=== PATIENT | female | born 1960 | race Caucasian/White ===

== ENCOUNTER 2025-07-01 09:41 | Outpatient (OUT) | payer MEDICARE, SELFPAY ==
--- OUTSIDE RECORDS SUMMARY | 2025-06-26 14:40 | XMS_ITS | Encounter Summary ---
Author Organization [facility] Address [address] [place] [address] Care Team Providers Care Street Sweeper Operator Name Role Phone Ace Macias DO Primary Care Provider [phone] Ace Macias DO Unavailable [phone] Cee Currie MD Unavailable [phone] Encounter Details Date Type Department Care Team (Late st Contact Info) Description 06/26/2025 2:40 PM EDT Office Visit [facility] [address] [facility] [address] [place] [address] Ace Macias DO [address] [facility] [address] [place] [address] Essential hypertension (Primary Dx); Malignant melanoma of skin of left upper arm (HCC); Chronic fatigue; Anemia, unspecified type; Tachycardia; Low vitamin D level; Malignant melanoma of left upper limb, including shoulder (HCC) Social History Tobacco Use Types Packs/Day Years Used Date Smoking Tobacco: Former Cigarettes Q uit: 03/07/1999 Smokeless Tobacco: Never Comments:Quit 23 yrs ago Alcohol Use Standard Drinks/Week Comments Not Currently 0 (1 standard drink = 0.6 oz pure alcohol) caffeine 1-2 cups per day; coffee B1300 Health Literacy Answer Date Recor ded How often do you need to hav e someone help you when you read instructions, pamphlets, or other written material from your doctor or pharmacy? Never 06/25/2025 Humiliation, Afraid, Rape, and Kick questionnair e Answer Date Recorded Within the last year, have y ou been afraid of your partner or ex-partner? No 06/25/2025 Within the last year, have y ou been humiliated or emotionally abused in other ways by your partner or ex-partner? No Within the last year, have y ou been kicked, hit, slapped, or otherwise physically hurt by your partner or ex-partner? No 06/25/2025 Within the last year, have y ou been raped or forced to have any kind of sexual activity by your partner or ex-partner? No 06/25/2025 Social Connection and Isolation Panel [NHANES] A nswer Date Recorded In a typical week, how many times do you talk on the phone with family, friends, or neighbors? Once a week 06/25/2025 How often do you get together with friends or re latives? Once a week 06/25/2025 How often do you attend hindu or adventist serv ices? Never 06/25/2025 Do you belong to any clubs o r organizations such as hindu groups, unions, fraternal or athletic groups, or school groups? No 06/25/2025 How often do you attend meet ings of the clubs or organizations you belong to? Never 06/25/2025 Are you , , di vorced, , never , or living with a partner? 06/25/2025 AUDIT-C Answer Date Recorded Q1: How often do you have a drink containing alc ohol? Monthly or less 06/25/2025 Q2: How many drinks containi ng alcohol do you have on a typical day when you are drinking? 1 or 2 06/25/2025 Q3: How often do you have si x or more drinks on one occasion? Never 06/25/2025 Overall Financial Resource Strain (CARDIA) Answe r Date Recorded How hard is it for you to pa y for the very basics like food, housing, medical care, and heating? Patient declined 06/25/2025 PHQ-2 Answer Date Recorded Patient Health Questionnaire-2 Score 0 06/26/2025 [facility] of Occupat ional Health - Occupational Stress Questionnaire Answer Date Recorded Do you feel stress - tense, restless, nervous, or anxious, or unable to sleep at night because your mind is troubled all the time - these days? Not at all 06/25/2025 Exercise Vital Sign Answer Date Recorde d On average, how many days pe r week do you engage in moderate to strenuous exercise (like a brisk walk)? 0 days 06/25/2025 On average, how many minutes do you engage in exercise at this level? 0 min 06/25/2025 Hunger Vital Sign Answer Date Recorded Within the past 12 months, y ou worried that your food would run out before you got the money to buy more. Never true Within the past 12 months, t he food you bought just didn't last and you didn't have money to get more. Patient declined PRAPARE - Transportation Answer Date Re corded In the past 12 months, has l ack of transportation kept you from medical appointments or from getting medications? No 06/07 In the past 12 months, has l ack of transportation kept you from meetings, work, or from getting things needed for daily living? No 06/25/2025 Housing Stability Vital Sign Answer Ronnie e Recorded In the last 12 months, was t here a time when you were not able to pay the mortgage or rent on time? No 03/27/2024 In the last 12 months, how many places have you lived? 1 03/27/2024 In the last 12 months, was t here a time when you did not have a steady place to sleep or slept in a group home (including now)? No 03/27/2024 Housing Stability Vital Sign Answer Ronnie e Recorded In the last 12 months, was t here a time when you were not able to pay the mortgage or rent on time? Patient declined 06/25/20 25 Number of Times Moved in the Last Year Not on fi le 06/25/2025 At any time in the past [address] [facility], were you homeless or living in a group home (including now)? No 06/25/2025 Comments No Sex and Gender Information Value Date Recorded Sex Assigned at Not on file Legal Sex Female 6:39 PM EDT Gender Identity Not on file Sexual Orientation Not on file documented as of this encounter Last Filed Vital Signs Vital Sign Reading Time Taken Comments Blood Pressure 124/86 06/26/2025 2:33 PM EDT Pulse 68 06/26/2025 2:33 PM EDT Temperature 36.2 C (97.2 F) 06/26/2025 2:33 PM EDT Respiratory Rate - - Oxygen Saturation 98% 06/26/2025 2:33 PM EDT Inhaled Oxygen Concentration - - Weight 67.1 kg (148 lb) 06/26/2025 2:33 PM EDT Height 160 cm (5' 3 ) 06/26/2025 2:33 PM EDT Body Mass Index 26.22 06/26/2025 2:33 PM EDT documented in this encounter Functional Status * Over the past 2 weeks, how often have you been bothered by any of the following problems? Question Answer Date of Assessment Author Little interest or pleasure in doing things Not at all 06/26/2025 2:43 PM EDT Basilia Patino LPN Feeling down, depressed, or hopeless Not at all 06/26/2025 2:43 PM EDT Basilia Patino LPN Patient Health Questionnaire-2 Score 0 06/26/2025 2:43 PM EDT Senia Patino LPN documented as of this encounter Progress Notes * Ace Macias DO - 06/26/2025 2:40 PM EDTAssociated Problem(s): Essential hypertension Record Blood Pressures 2-4 times weekly and record. Return with readings at next appointment. Call with readings if sees significant changes Orders: Lipid panel; Future CBC and differential; Future * Ace Macias DO - 06/26/2025 2:40 PM EDTAssociated Problem(s): Malignant melanoma of skin of left upper arm (HCC) Problem is stable, will continue with current treatment plan. Call or return to clinic if any changes occur, cont fu with derm as well Orders: CBC and differential; Future * Ace Macias DO - 06/26/2025 2:40 PM EDTAssociated Problem(s): Chronic fatigue Patient advised to return if symptoms worsen and/or persist despite treatment. Orders: CBC and differential; Future Comprehensive metabolic panel; Future TSH; Future * Ace Macias DO - 06/26/2025 2:40 PM EDTAssociated Problem(s): Anemia Labs ordered today, will follow up when results available Orders: CBC and differential; Future Iron and TIBC; Future Vitamin B12; Future Folate; Future Ferritin; Future * Ace Macias DO - 06/26/2025 2:40 PM EDTAssociated Problem(s): Low vitamin D level Labs ordered today, will follow up when results available Orders: CBC and differential; Future Vitamin D 1,25 dihydroxy; Future * Ace Macias DO - 06/26/2025 2:40 PM EDT Images from the original note were not included. Subjective Patient ID: Carolina Francois is a 65 y.o. female who presents for Hypertension, Palpitations. Hypertension: Pt presents to the office to discuss BP monitor readings. BP monitor has showed irregular HR or slow HR. Pt states she has right breast pain regularly. She states she gets routine mammograms. Denies any irregular HR's or chest pain other than the breast pain. Pt states in February BP did elevate, this past week BP was 167/110 HR 66, 144/89, 168/98, HR 59, 68. BP in office on left arm was 124/86. Pt used machine and checked on the same arm and it was 169/94, pulse 62 Hypertension This is a chronic problem. The current episode started more than 1 year ago. Review of Systems All other systems reviewed and are negative. Objective There were no vitals taken for this visit. Physical Exam Constitutional: Appearance: Normal appearance. HENT: Head: Normocephalic and atraumatic. Eyes: Extraocular Movements: Extraocular movements intact. Conjunctiva/sclera: Conjunctivae normal. Pupils: Pupils are equal, round, and reactive to light. Cardiovascular: Rate and Rhythm: Normal rate and regular rhythm. Pulmonary: Effort: Pulmonary effort is normal. Breath sounds: Normal breath sounds. Abdominal: General: Bowel sounds are normal. Palpations: Abdomen is soft. Musculoskeletal: General: Normal range of motion. Skin: General: Skin is warm and dry. Neurological: General: No focal deficit present. Mental Status: She is alert and oriented to person, place, and time. Psychiatric: Mood and Affect: Mood normal. Thought Content: Thought content normal. Judgment: Judgment normal. Assessment & Plan Essential hypertension Record Blood Pressures 2-4 times weekly and record. Return with readings at next appointment. Call with readings if sees significant changes Orders: Lipid panel; Future CBC and differential; Future Malignant melanoma of skin of left upper arm (HCC) Problem is stable, will continue with current treatment plan. Call or return to clinic if any changes occur, cont fu with derm as well Orders: CBC and differential; Future Chronic fatigue Patient advised to return if symptoms worsen and/or persist despite treatment. Orders: CBC and differential; Future Comprehensive metabolic panel; Future TSH; Future Anemia, unspecified type Labs ordered today, will follow up when results available Orders: CBC and differential; Future Iron and TIBC; Future Vitamin B12; Future Folate; Future Ferritin; Future Tachycardia Patient advised to return if symptoms worsen and/or persist despite treatment. Orders: CBC and differential; Future Comprehensive metabolic panel; Future ECG 12 lead; Future Low vitamin D level Labs ordered today, will follow up when results available Orders: CBC and differential; Future Vitamin D 1,25 dihydroxy; Future Malignant melanoma of left upper limb, including shoulder (HCC) Orders: CBC and differential; Future documented in this encounter Plan of Treatment Upcoming Encounters Date Type Department Care Team (Late st Contact Info) Description 09/18/2025 1:50 PM EST Office Visit [facility] [address] [place] [id number] Cee Currie MD [address] [place] [address] Scheduled Orders Name Type Priority Associated Diagnoses Orde r Schedule Lipid panel Lab Routine Essential hypertension Expected: 06/27/2025 (Approximate), Expires: 07/26/2025 CBC and differential Lab Routine Malignant melanoma of left upper limb, including shoulder (HCC) Essential hypertension Malignant melanoma of skin of left upper arm (HCC) Chronic fatigue Anemia, unspecified type Tachycardia Low vitamin D level Expected: 06/27/2025 (Approximate), Expires: 07/26/2025 Comprehensive metabolic panel Lab Routine Chronic fatigue Tachycardia Expected: 06/27/2025 (Approximate), Expires: 07/26/2025 Vitamin D 1,25 dihydroxy Lab Routine Low vitamin D level Expected: 06/27/2025 (Approximate), Expires: 07/26/2025 TSH Lab Routine Chronic fatigue Expected: 06/27/2025 (Approximate), Expires: 07/26/2025 Iron and TIBC Lab Routine Anemia, unspecified type Expected: 06/27/2025 (Approximate), Expires: 07/26/2025 Vitamin B12 Lab Routine Anemia, unspecified type Expected: 06/27/2025 (Approximate), Expires: 07/26/2025 Folate Lab Routine Anemia, unspecified type Expected: 06/27/2025 (Approximate), Expires: 07/26/2025 Ferritin Lab Routine Anemia, unspecified type Expected: 06/27/2025 (Approximate), Expires: 07/26/2025 ECG 12 lead ECG Routine Tachycardia Expected: 06/26/2025 (Approximate), Expires: 06/26/2026 documented as of this encounter Visit Diagnoses Diagnosis Essential hypertension- Primary Unspecified essential hypertension Malignant melanoma of skin of left upper arm (HCC) Chronic fatigue Other malaise and fatigue Anemia, unspecified type Tachycardia Unspecified tachycardia Low vitamin D level Malignant melanoma of left upper limb, including shoulder (HCC) documented in this encounter Additional Health Concerns Assessment Noted Time PHQ-9 Depression Total Score: 0 01/15/20 25 3:00 PM EDT documented as of this encounter Care Teams Street Sweeper Operator Relationship Specialty Start Date End Date Ace Macias DO [address] [facility] [address] [place] [id number] PCP - General Family Medicine 03/15/23 Ace Macias DO [address] [place] [address] PCP - [employer] 03/07/24 Cee Currie MD [address] [place] [address] Referring Physician Dermatology 01/14/25 documented as of this encounter
--- OUTSIDE RECORDS SUMMARY | 2025-07-01 09:43 | XMS_ITS | Encounter Summary ---
Author Organization [facility] Address [address] [place] [address] Care Team Providers Care Rn Peritoneal Dialysis Name Role Phone Ace Macias DO Primary Care Provider [phone] Ace Macias DO Unavailable [phone] Cee Currie MD Unavailable [phone] Encounter Details Date Type Department Care Team (Latest Contact Info) Description 06/26/2025 Travel Social History Tobacco Use Types Packs/Day Years [...] week 06/25/2025 How often do you attend orthodox or church serv ices? Never 06/25/2025 Do you belong to any clubs o r organizations such as orthodox groups, unions, fraternal or athletic groups, or [...] Recorded Patient Health Questionnaire-2 Score 0 06/26/2025 [facility] of Occupat ional Health - Occupational Stress [...] place to sleep or slept in a assisted (including now)? No 03/27/2024 Housing Stability Vital Sign Answer Ronnie e Recorded In the last 12 months, was t here a time when you were not able to pay the mortgage or rent on time? Patient declined 06/25/20 25 Number of Times Moved in the Last Year Not on fi le 06/25/2025 At any time in the past 12 m [facility], were you homeless or living in a assisted (including now)? No 06/25/2025 Comments No Sex and Gender Information Value Date Recorded Sex Assigned at Not on file Legal Sex Female 6:39 PM EDT Gender Identity Not on file Sexual Orientation Not on file documented as of this encounter Functional Status * Over the [...] Patino LPN documented as of this encounter Plan of Treatment Upcoming Encounters Date Type Department Care Team (Late st Contact Info) Description 09/18/2025 1:50 PM EST Office Visit [facility] [address] [place] [address] Cee Currie MD [address] [place] [address] documented as of this encounter Visit Diagnoses Not on filedocumented in this encounter Additional Health Concerns Assessment Noted Time PHQ-9 Depression Total Score: 0 01/15/20 25 3:00 PM EDT documented as of this encounter Care Teams Rn Peritoneal Dialysis Relationship Specialty Start Date End Date Ace Macias DO [address] [facility] [address] [place] [address] PCP - General Family Medicine 03/15/23 Ace Macias DO [address] [facility] [address] [place] [address] PCP - [employer] 03/07/24 Cee Currie MD [address] [place] [address] Referring Physician Dermatology 01/14/25 documented as of this encounter
--- OUTSIDE RECORDS SUMMARY | 2025-07-01 09:43 | XMS_ITS | Encounter Summary ---
Author Organization [facility] Address [address] [place] [address] Care Team Providers Care Business Technology Architect Name Role Phone Ace Macias DO Primary Care Provider [phone] Ace Macias DO Unavailable [phone] Cee Currie MD Unavailable [phone] Encounter Details Date Type Department Care Team (Latest Contact Info) Description 06/25/2025 Travel Social History Tobacco Use Types Packs/Day [...] week 06/25/2025 How often do you attend voodoo or sabianism serv ices? Never 06/25/2025 Do you belong to any clubs o r organizations such as voodoo groups, unions, fraternal or athletic groups, or [...] Recorded Patient Health Questionnaire-2 Score 0 06/26/2025 [facility] of Occupat ional Health - Occupational Stress [...] place to sleep or slept in a snf (including now)? No 03/27/2024 Housing Stability Vital Sign Answer Ronnie e Recorded In the last 12 months, was t here a time when you were not able to pay the mortgage or rent on time? Patient declined 06/25/20 25 Number of Times Moved in the Last Year Not on fi le 06/25/2025 At any time in the past 12 m [facility], were you homeless or living in a snf (including now)? No 06/25/2025 Comments No Sex and Gender Information Value Date Recorded Sex Assigned at Not on file Legal Sex Female 6:39 PM EDT Gender Identity Not on file Sexual Orientation Not on file documented as of this encounter Functional Status * Audit-C Score Answer Date of Assessment Author 1 06/25/2025 3:26 PM EDT Corey, Generic * Q1: How often do you have a drink containing alcohol? Answer Date of Assessment Author Monthly or less 06/25/2025 3:26 PM EDT Corey, Generic * Q2: How many drinks containing alcohol do you have on a typical day when you are drinking? Answer Date of Assessment Author 1 or 2 06/25/2025 3:26 PM EDT Corey, Generic * Q3: How often do you have six or more drinks on one occasion? Answer Date of Assessment Author Never 06/25/2025 3:26 PM EDT Corey, Generic documented as of this encounter Plan of Treatment Upcoming Encounters Date Type Department Care Team (Late st Contact Info) Description 09/18/2025 1:50 PM EST Office Visit [facility] [address] [place] [address] Cee Currie MD [address] [place] [address] documented as of this encounter Visit Diagnoses Not on filedocumented in this encounter Additional Health Concerns Assessment Noted Time PHQ-9 Depression Total Score: 0 01/15/20 3:00 PM EDT documented as of this encounter Care Teams Business Technology Architect Relationship Specialty Start Date End Date Ace Macias DO [address] [place] [address] PCP - General Family Medicine 03/15/23 Ace Macias DO [address] [place] [address] PCP - [employer] 03/07/24 Cee Currie MD [address] [place] [address] Referring Physician Dermatology 01/14/25 documented as of this encounter
--- OUTSIDE RECORDS SUMMARY | 2025-07-01 09:43 | XMS_ITS | Encounter Summary ---
Author Organization [facility] Address [address] [place] [address] Care Team Providers Care Meat Cutting Block Repairer Name Role Phone Ace Macias DO Primary Care Provider [phone] Ace Macias DO Unavailable [phone] Cee Currie MD Unavailable [phone] Encounter Details Date Type Department Care Team (Late st Contact Info) Description 01/15/2025 Abstract [facility] [address] [facility] [address] [place] [address] Ace Macias, DO [address] [facility] [address] [place] [address] Social History Tobacco Use Types Packs/Day Years Used Date Smoking Tobacco: Former Cigarettes Q uit: 03/07/1999 Smokeless Tobacco: Never Comments:Quit 23 yrs ago Alcohol Use Standard Drinks/Week Comments Not Currently 0 (1 standard drink = 0.6 oz pure alcohol) caffeine 1-2 cups per day; coffee Social Connection and Isolation Panel [NHANES] A nswer Date Recorded In a typical week, how many times do you talk on the phone with family, friends, or neighbors? Patient declined 03/27/2024 How often do you get togethe r with friends or relatives? Patient declined 03/27/2024 How often do you attend amish or yazidi serv ices? Patient declined 03/27/2024 Do you belong to any clubs o r organizations such as amish groups, unions, fraternal or athletic groups, or school groups? Patient declined 03/27/2024 How often do you attend meet ings of the clubs or organizations you belong to? Patient declined 03/27/2024 Are you , , di vorced, , never , or living with a partner? 03/27/2024 AUDIT-C Answer Date Recorded Q1: How often do you have a drink containing alc ohol? Monthly or less 03/27/2024 Q2: How many drinks containi ng alcohol do you have on a typical day when you are drinking? 1 or 2 03/27/2024 Q3: How often do you have si x or more drinks on one occasion? Never 03/27/2024 Overall Financial Resource Strain (CARDIA) Answe r Date Recorded How hard is it for you to pa y for the very basics like food, housing, medical care, and heating? Patient declined 03/27/2024 PHQ-2 Answer Date Recorded Patient Health Questionnaire-2 Score 0 01/14/2025 [facility] of Occupat ional Health - Occupational Stress Questionnaire Answer Date Recorded Do you feel stress - tense, restless, nervous, or anxious, or unable to sleep at night because your mind is troubled all the time - these days? Patient declined 03/27/2024 Exercise Vital Sign Answer Date Recorde d On average, how many days pe r week do you engage in moderate to strenuous exercise (like a brisk walk)? Patient declined On average, how many minutes do you engage in exercise at this level? Patient declined 03/27/2024 Hunger Vital Sign Answer Date Recorded Within the past 12 months, y ou worried that your food would run out before you got the money to buy more. Patient declined Within the past 12 months, t he food you bought just didn't last and you didn't have money to get more. Patient declined PRAPARE - Transportation Answer Date Re corded In the past 12 months, has l ack of transportation kept you from medical appointments or from getting medications? Patient declined 03/27/2024 In the past 12 months, has l ack of transportation kept you from meetings, work, or from getting things needed for daily living? Patient declined 03/27/2024 Housing Stability Vital Sign Answer Ronnie [...] place to sleep or slept in a [facility] (including now)? No 03/27/2024 Comments No Sex and Gender Information Value Date Recorded Sex Assigned at Not on file Legal Sex Female 6:39 PM EDT Gender Identity Not on file Sexual Orientation Not on file documented as of this encounter Plan of Treatment Upcoming Encounters Date Type Department Care Team (Late st Contact Info) Description 09/18/2025 1:50 PM EST Office Visit [facility] [address] [place] [phone] Cee Currie MD [address] [place] [address] documented as of this encounter Visit Diagnoses Not on filedocumented in this encounter Additional Health Concerns Assessment Noted Time PHQ-9 Depression Total Score: 0 01/15/20 3:00 PM EDT documented as of this encounter Care Teams Meat Cutting Block Repairer Relationship Specialty Start Date End Date Ace Macias DO [address] [place] [address] PCP - General Family Medicine 03/15/23 Ace Macias DO [address] [place] [address] PCP - [employer] 03/07/24 Cee Currie MD [address] [place] [address] Referring Physician Dermatology 01/14/25 documented as of this encounter
--- OUTSIDE RECORDS SUMMARY | 2025-07-01 09:44 | XMS_ITS | Encounter Summary ---
Author Organization [facility] Address [address] [place] [address] Phone Care Team Providers Care Sharepoint Trainer Name Role Phone Unavailable Primary Care Provider Unavailabl e Encounter Details Date Type Department Care Team (Late st Contact Info) Description 07/29/2023 Scanned Document [facility] LE[facility] [address] [place] [address] Conversion, Onbase Social History Tobacco Use Types Packs/Day Years Used Date Smoking Tobacco: Never Assessed Comments Unknown Sex and Gender Information Value Date Recorded Sex Assigned at Not on file Legal Sex Female 6:20 AM EST Gender Identity Not on file Sexual Orientation Not on file documented as of this encounter Plan of Treatment Not on file documented as of this encounter Procedures Procedure Name Priority Date/Time Associated Diagnosis Comments SURGICAL PATHOLOGY EXAM 07/29/2023 documented in this encounter Results * SURGICAL PATHOLOGY EXAM (07/29/2023) Narrative 07/29/2023 Ordered by an unspecified provider. us Onbase Conversion LAB PATHOLOGY ORDERABLES Final Result documented in this encounter Visit Diagnoses Not on filedocumented in this encounter
--- OUTSIDE RECORDS SUMMARY | 2025-07-01 09:44 | XMS_ITS | Encounter Summary ---
Author Organization [facility] Address [address] [place] [address] Phone Care Team Providers Care Cabin Outfitter Name Role Phone Unavailable Primary Care Provider Unavailabl e Encounter Details Date Type Department Care Team (Late st Contact Info) Description 08/15/2023 Scanned Document [facility] LEGACY [address] [place] [address] Conversion, Onbase Social History Tobacco Use Types [...] Date/Time Associated Diagnosis Comments SURGICAL PATHOLOGY EXAM 08/15/2023 documented in this encounter Results * SURGICAL PATHOLOGY EXAM (08/15/2023) Narrative 08/15/2023 Ordered by an unspecified provider. us Onbase Conversion LAB PATHOLOGY ORDERABLES Final Result documented in this encounter Visit Diagnoses Not on filedocumented in this encounter
--- OUTSIDE RECORDS SUMMARY | 2025-07-01 09:44 | XMS_ITS | Clinical Summary ---
Author Organization [facility] Address [address] [place] [address] Care Team Providers Care Kettle Operator Head Name Role Phone Ace Macias DO Primary Care Provider [phone] Ace Macias DO Unavailable [phone] Cee Currie MD Unavailable [phone] Allergies Active Allergy Reactions Criticality Noted Date Comments Acetaminophen Unknown 09/08/2023 Oxycodone GI intolerance 07/25/2024 Tramadol Unknown 07/01/2020 Medications cholecalciferol (Vitamin D-3) 125 MCG (5000 UT) capsuleIndicatio ns:Vitamin D deficiency, unspecified TAKE 1 CAPSULE BY MOUTH EVERY DAY 90 capsule 1 04/30/20 24 Active omeprazole (PriLOSEC) [address] capsuleIndicatio ns:Gastroesophag eal reflux disease without esophagitis Take 1 capsule (40 mg) by mouth Daily Do not crush or chew. 90 capsule 3 08/06/20 24 Active estradiol (Estrace) 0.1 MG/GM vaginal creamIndications :Vaginal dryness 1g every day for 2 weeks, then twice a week 34 g 3 09/06/20 24 Active hydrocortisone 2.5 % creamIndications :Rash Apply topically 2 (two) times a day as needed for irritation or rash 30 g 5 12/13/19 25 026 Active atenolol (Tenormin) 50 MG tabletIndication s:Essential hypertension TAKE 1 AND 1/2 TABLETS DAILY BY MOUTH 135 tablet 1 02/08/20 25 Active Bacillus Coagulans-Inulin (Probiotic) 1-250 BILLION-MG capsule Take by mouth 025 Discontinued Ascorbic Acid (vitamin C) 1000 MG tablet Take 1,000 mg by mouth Daily 025 Discontinued ELDERBERRY PO Take by mouth 025 Discontinued Active Problems Problem Noted Date Diagnosed Date Low vitamin D level 06/26/2025 Assessment & Plan (06/26/2025 3:01 PM EDT): Labs ordered today, will follow up when results available Orders: CBC and differential; Future Vitamin D 1,25 dihydroxy; Future Allergic rhinitis 09/08/2023 Basal cell carcinoma 09/08/2023 Carpal tunnel syndrome of right wrist 09/08/2023 Malignant melanoma of skin of left upper arm 12/2022 Assessment & Plan (06/26/2025 3:01 PM EDT): Problem is stable, will continue with current treatment plan. Call or return to clinic if any changes occur, cont fu with derm as well Orders: CBC and differential; Future Memory problem 09/08/2023 Migraine 09/08/2023 Other chronic pain 06/20/2020 Sciatica 06/20/2020 Intractable migraine without aura 10/24/2019 Constipation 07/02/2019 Chronic fatigue 02/05/2019 Assessment & Plan (06/26/2025 3:01 PM EDT): Patient advised to return if symptoms worsen and/or persist despite treatment. 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 Return with readings at next appointment. Call with readings if sees significant changes Orders: Lipid panel; Future CBC and differential; Future Gastroesophageal reflux disease with esophagitis 03/23/2017 Anemia 06/21/2016 Assessment & Plan (06/26/2025 3:01 PM EDT): Labs ordered today, will follow up when results available Orders: CBC and differential; Future Iron and TIBC; Future Vitamin B12; Future Folate; Future Ferritin; Future Encounters Date Type Department Care Team Description 06/26/2025 2:40 PM EDT Office Visit [facility] [address] [place] [address] Ace Macias DO Essential hypertension (Primary Dx); Malignant melanoma of skin of left upper arm (HCC); Chronic fatigue; Anemia, unspecified type; Tachycardia; Low vitamin D level; Malignant melanoma of left upper limb, including shoulder (HCC) 06/26/2025 Bamboo flowsheet [facility] [address] [place] [address] Ace Macias DO 06/26/2025 Travel 06/25/2025 Travel 04/10/2025 Results Follow-Up [facility] [address] [place] [address] Nickie Sykes NP Left diagnostic mammogram with tomosynthesis 04/08/2025 10:00 AM EDT Ancillary Procedure [facility] [address] [place] [address] Mass of left breast, unspecified quadrant 04/08/2025 9:30 AM EDT Ancillary Procedure [facility] [address] [place] [address] Mass of left breast, unspecified quadrant 04/08/2025 Travel 04/02/2025 Travel from Last 3 Months Family History Medical History Relation Name Comments Heart failure Brother Lung disease Father Breast cancer Maternal Grandmother Rochelle? Cancer Maternal Grandmother Rochelle? Arthritis Mother 2 sisters Cancer Mother 2 sisters Colon cancer Mother 2 sisters Dementia Mother 2 sisters Diabetes Mother 2 sisters Hypertension Mother 2 sisters Cancer Mother's Brother ? Cancer Mother's Sister Vicky Breast cancer Sister Maday, Cancer Sister Maday, Melanoma Neg Hx Relation Name Status Comments Brother Father Maternal Grandmother Rochelle? Mother 2 sisters Mother's Brother ? Mother's Sister Vicky Sister Maday, Social History Tobacco Use Types Packs/Day Years Used Date Smoking Tobacco: Former Cigarettes Q uit: 03/07/1999 Smokeless Tobacco: Never Tobacco Cessation:Counseling Given: Yes Comments:Quit 23 yrs ago Alcohol Use Standard [...] week 06/25/2025 How often do you attend scientology or yazidism serv ices? Never 06/25/2025 Do you belong to any clubs o r organizations such as scientology groups, unions, fraternal or athletic groups, or [...] Recorded Patient Health Questionnaire-2 Score 0 06/26/2025 [facility] of Occupat ional Health - Occupational Stress [...] No 06/25/2025 Housing Stability Vital Sign Answer Rnonie e Recorded In the last 12 months, [...] place to sleep or slept in a half-way (including now)? No 03/27/2024 Housing Stability Vital Sign Answer Ronnie e Recorded In the last 12 months, was t here a time when you were not able to pay the mortgage or rent on time? Patient declined 06/25/20 25 Number of Times Moved in the Last Year Not on fi le 06/25/2025 At any time in the past 12 m [facility], were you homeless or living in a half-way (including now)? No 06/25/2025 Comments No Sex and Gender Information Value Date Recorded Sex Assigned at Not on file Legal Sex Female 6:39 PM EDT Gender Identity Not on file Sexual Orientation Not on file Last Filed Vital Signs Vital Sign Reading [...] Mass Index 26.22 06/26/2025 2:33 PM EDT Plan of Treatment Upcoming Encounters Date Type Department Care Team (Late st Contact Info) Description 09/18/2025 1:50 PM EST Office Visit [facility] [address] [place] [address] Cee Currie MD [address] [place] [address] Health Maintenance Due Date Last Done Comments CT Colonography 1959 FIT-DNA 1959 FIT 1959 FOBT 1959 Sigmoidoscopy 1959 Skin Cancer Screening 02/23/1960 Pneumococcal Vaccine: 65+ Ye ars (1 of 1 - PCV) 2009 Influenza Vaccine (#1) 2025 Medicare Annual Wellness (AWV) 01/14/2026 0 01/14/2025, 01/14/2025, 01/14/2025, Additional history exists Mammogram 04/08/2026 04/08/2025, 12/0 04/2024, 09/24/2024, Additional history exists Colonoscopy 04/13/2031 04/13/2021 Colorectal Cancer Screening 04/13/2031 Procedures Procedure Name Priority Date/Time Associated Diagnosis Comments BI MAMMOGRAM DIAGNOSTIC TOMOSYNTHESIS LEFT Routine 04/08/2025 10:20 AM EDT Mass of left breast, unspecified quadrant BI US BREAST LIMITED LEFT Routine 04/08/2025 10:12 AM EDT Mass of left breast, unspecified quadrant COLONOSCOPY Routine 04/13/2021 12:00 PM EDT from Last 3 Months or Most Recently Relevant to Health Maintenance Results * Left diagnostic mammogram with tomosynthesis (04/08/2025 10:20 AM EDT) Anatomical Region Laterality Modality Breast Left Mammography 04/10/2025 2:05 PM EDT Impressions 04/10/2025 2:18 PM EDT Previously noted asymmetric density in the posterior, medial aspect of the left breast is again identified and similar to the prior mammogram studies. Finding likely represents a complex cyst, fibroadenoma or intramammary lymph node when correlated with the ultrasound study. When correlating all studies no convincing evidence of neoplasm. Follow-up diagnostic mammogram study of the left breast with similar views as well as ultrasound study of the left breast with similar views in 6 months recommended to assess stability. BIRADS 3 - Probably Benign Findings DENSITY: There are scattered areas of fibroglandular density. FOLLOW-UP: Diagnostic Mammogram in 6 Months, breast ultrasound in 6 months Board Certified Radiologists. Accredited by the ACR and FDA. MAMMOGRAPHY IS VERY IMPORTANT TO YOUR HEALTH. THE [employer] GUIDELINES RECOMMEND THAT WOMEN 40 YEARS OF AGE AND OLDER SHOULD HAVE A MAMMOGRAM EVERY YEAR. A REMINDER LETTER WILL BE SENT AT THE APPROPRIATE TIME. ELECTRONICALLY SIGNED BY: Malou Cyr 04/10/2025 2:18 PM EDT EXAMINATION: BI MAMMOGRAM DIAGNOSTIC TOMOSYNTHESIS LEFT CLINICAL HISTORY: recheck TECHNIQUE: Diagnostic digital mammogram study of the left breast was performed with 2D and 3D tomosynthesis imaging. Study was compared to the screening mammogram study of the breasts dated 09/24/2024, diagnostic mammogram study of the left breast dated 10/12/2024, ultrasound study of the left breast dated 10/12/2024 and ultrasound study of the left breast dated 04/08/2025. FINDINGS: Standard views, exaggerated medial cc view, true lateral view and coned-down compression exaggerated medial cc view of the left breast were obtained. Previously noted approximately 5 x 4 mm asymmetric density in the posterior, medial aspect of the left breast is again identified and appears similar to the prior mammogram studies. Ultrasound study dated 04/08/2025 demonstrates at the 8 o'clock position area of decreased echogenicity with internal echoes likely correlating with the mammographic density. Finding most likely represents a complex cyst, fibroadenoma or intramammary lymph node. Other possibly would be less likely. This finding was noted identified on the prior ultrasound exam likely related to its position and technique. When correlating all studies no convincing evidence of neoplasm. Axillary lymph nodes are noted which appear grossly unremarkable. us Nickie Sykes NP IMG BI PROCEDURES Final Result * Left breast US limited (04/08/2025 10:12 AM EDT) Anatomical Region Laterality Modality Breast Left Ultrasound 04/10/2025 2:19 PM EDT Impressions 04/10/2025 2:24 PM EDT Impression: Left breast ultrasound study demonstrates likely small benign process at the 8 o'clock position as noted above, felt to correlate with the asymmetric density noted on the mammogram studies. No obvious solid vascular mass to suggest neoplasm. When correlating all studies no convincing evidence of neoplasm. Follow-up diagnostic mammogram study of the left breast as well as ultrasound study of the left breast in 6 months is recommended to assess stability. BI-RADS 3 ELECTRONICALLY SIGNED BY: Adrian Vasques M.D. Narrative 04/10/2025 2:24 PM EDT Examination: BI US BREAST LIMITED LEFT Reason for Study: recheck Comparison: Diagnostic mammogram study of the left breast dated 10/12/2024, ultrasound study of the left breast dated 10/12/2024 and diagnostic mammogram study of the left breast dated 04/08/2025. Technique: Left breast ultrasound study was performed. Images were obtained from the 6:00 to the 12 o'clock position to include the area of interest. Findings: At the 8 o'clock position there is an area of decreased echogenicity with internal echoes without internal vascularity measuring approximately 0.6 x 0.6 x 0.5 cm. The finding is felt to correlate with the asymmetric density noted on the mammogram studies. The finding was not able identified in the prior ultrasound likely due to its position and difference in the technique. Finding most likely represents small complex cyst, fibroadenoma or intramammary lymph node. No obvious solid vascular mass to suggest neoplasm. When correlating all studies no convincing evidence of neoplasm. us Nickie Sykes NP IMG US PROCEDURES Final Result * Colonoscopy (04/13/2021 12:00 PM EDT) Anatomical Region Laterality Modality Endoscopy 04/13/2021 12:0 0 PM EDT Narrative 04/13/2021 12:00 PM EDT PERFORMED AT [facility] LOCATION:[id number] Procedure Note CONVERSION, GENERIC - 03/23/2023 PERFORMED AT [facility] LOCATION:[id number] Ace Macias DO ENDOSCOPY PROCEDURE ORDERABLE S Final Result from Last 3 Months or Most Recently Relevant to Health Maintenance Insurance [employer] MEDICARE ADVANTAGE Care Teams Kettle Operator Head Relationship Specialty Start Date End Date Ace Macias DO [address] [place] [address] PCP - General Family Medicine 03/15/23 Ace Macias DO [address] [place] [address] PCP - [employer] 03/07/24 Cee Currie MD [address] [place] [address] Referring Physician Dermatology 01/14/25
--- OUTSIDE RECORDS SUMMARY | 2025-07-01 09:44 | XMS_ITS | Encounter Summary ---
Author Organization [facility] Address [address] [place] [address] Care Team Providers Care Community Service Officer Coordinator Name Role Phone Ace Macias DO Primary Care Provider [phone] Ace Macias DO Unavailable [phone] Cee Currie MD Unavailable [phone] Encounter Details Date Type Department Care Team (Late st Contact Info) Description 11/08/2024 Abstract [facility] [place] [facility] [address] [facility] [address] [place] [address] Ace Macias, DO [address] [facility] [address] [place] [address] Social History Tobacco Use Types Packs/Day Years [...] declined 03/27/2024 How often do you attend hinduism or pentecostalism serv ices? Patient declined 03/27/2024 Do you belong to any clubs o r organizations such as hinduism groups, unions, fraternal or athletic groups, or [...] Date Recorded Patient Health Questionnaire-2 Score 0 03/29/2024 [facility] of Occupat ional Health - Occupational [...] place to sleep or slept in a penitentiary (including now)? No 03/27/2024 Comments No Sex [...] [address] [place] [address] Cee Currie MD [address] [place] [address] documented as of this encounter Visit Diagnoses Not on filedocumented in this encounter Additional Health Concerns Assessment Noted Time PHQ-9 Depression Total Score: 0 03/29/20 24 2:00 PM EDT documented as of this encounter Care Teams Community Service Officer Coordinator Relationship Specialty Start Date End Date Ace Macias DO [address] [place] [address] PCP - General Family Medicine 03/15/23 Ace Macias DO [address] [place] [address] PCP - [employer] 03/07/24 Cee Currie MD [address] [place] [address] Referring Physician Dermatology 01/14/25 documented as of this encounter
--- OUTSIDE RECORDS SUMMARY | 2025-07-01 09:44 | XMS_ITS | Encounter Summary ---
Author Organization [facility] Address [address] [place] [address] Care Team Providers Care Director Of Search Engine Optimization Name Role Phone Ace Macias DO Primary Care Provider [phone] Ace Macias DO Unavailable [phone] Cee Currie MD Unavailable [phone] Encounter Details Date Type Department Care Team (Late st Contact Info) Description 06/15/2024 Abstract [facility] [address] [facility] [address] [place] [address] Ace Macias, DO [address] [facility] [address] [place] [address] Social History Tobacco Use Types Packs/Day Years [...] declined 03/27/2024 How often do you attend yazdanism or tenriism serv ices? Patient declined 03/27/2024 Do you belong to any clubs o r organizations such as yazdanism groups, unions, fraternal or athletic groups, or [...] Recorded Patient Health Questionnaire-2 Score 0 03/29/2024 [facility] of Occupat ional Health - Occupational [...] place to sleep or slept in a detention (including now)? No 03/27/2024 Comments Unknown Sex and Gender Information Value [...] [address] [place] [address] Cee Currie MD [address] [place] [address] documented as of this encounter Visit Diagnoses Not on filedocumented in this encounter Additional Health Concerns Assessment Noted Time PHQ-9 Depression Total Score: 0 03/29/20 24 2:00 PM EDT documented as of this encounter Care Teams Director Of Search Engine Optimization Relationship Specialty Start Date End Date Ace Macias DO [address] [place] [address] PCP - General Family Medicine 03/15/23 Ace Macias DO [address] [place] [address] PCP - [employer] 03/07/24 Cee Currie MD [address] [place] [address] Referring Physician Dermatology 01/14/25 documented as of this encounter
--- OUTSIDE RECORDS SUMMARY | 2025-07-01 09:44 | XMS_ITS | Encounter Summary ---
Author Organization [facility] Address [address] [place] [address] Care Team Providers Care Sleeve Machine Tender Name Role Phone Ace Macias DO Primary Care Provider [phone] Ace Macias DO Unavailable [phone] Cee Currie MD Unavailable [phone] Encounter Details Date Type Department Care Team (Late st Contact Info) Description 06/26/2025 Bamboo flowsheet [facility] [address] [facility] [address] [place] [address] Ace Macias DO [address] [facility] [address] [place] [address] Social History Tobacco Use Types Packs/Day Years [...] week 06/25/2025 How often do you attend judaism or adventist serv ices? Never 06/25/2025 Do you belong to any clubs o r organizations such as judaism groups, unions, fraternal or athletic groups, or [...] Recorded Patient Health Questionnaire-2 Score 0 06/26/2025 [facility] of Occupat ional Health - Occupational Stress [...] place to sleep or slept in a chcf (including now)? No 03/27/2024 Housing Stability Vital Sign Answer Ronnie e Recorded In the last 12 months, was t here a time when you were not able to pay the mortgage or rent on time? Patient declined 06/25/20 25 Number of Times Moved in the Last Year Not on fi le 06/25/2025 At any time in the past 12 m [facility], were you homeless or living in a chcf (including now)? No 06/25/2025 Comments No Sex [...] Dermatology [address] [place] [address] Cee Currie MD [address] [place] [address] documented as of this encounter Visit Diagnoses Not on filedocumented in this encounter Additional Health Concerns Assessment Noted Time PHQ-9 Depression Total Score: 0 01/15/20 25 3:00 PM EDT documented as of this encounter Care Teams Sleeve Machine Tender Relationship Specialty Start Date End Date Ace Macias DO [address] [place] [address] PCP - General Family Medicine 03/15/23 Ace Macias DO [address] [place] [address] PCP - [employer] 03/07/24 Cee Currie MD [address] [place] [address] Referring Physician Dermatology 01/14/25 documented as of this encounter
--- OUTSIDE RECORDS SUMMARY | 2025-07-01 09:44 | XMS_ITS | Encounter Summary ---
Author Organization [facility] Address [address] [place] [address] Phone Care Team Providers Care Fire Extinguisher Mechanic Name Role Phone Unavailable Primary Care Provider Unavailabl e Reason for Referral * Consultation (Routine) - Closed Specialty Diagnoses / Procedures Referred By Omero christian Referred To Contact Dermatology Diagnoses Neoplasm of uncertain behavior of skin Procedures [place] OFFICE/OUTPATIENT NEW HIGH MDM 60-74 MINUTES Cee Currie MD [address] [facility] [address] [place] [address] Phone: tel: fax: Anthony Davis MD PhD [address] [facility], [facility] [address] [place] [address] Phone: tel: fax:[phone] Referral ID Status Reason Start Date Expiration Date V isits Requested Visits Authorized [id number] Closed Specialty Services Required 08/13/2023 02/09/2024 1 1 Encounter Details Date Type Department Care Team (Latest Contact Info) Description 08/13/2023 Transcribe Orders [facility] [address] [facility] [address] [place] [address] Cee Currie MD [address] [facility] [address] [place] [address] Neoplasm of uncertain behavior of skin (Primary Dx) Social History Tobacco Use Types Packs/Day Years Used Date Smoking Tobacco: Never Assessed Comments Unknown Sex and Gender Information Value Date Recorded Sex Assigned at Not on file Legal Sex Female 6:20 AM EST Gender Identity Not on file Sexual Orientation Not on file documented as of this encounter Plan of Treatment Scheduled Referrals Name Type Priority Associated Diagnoses Order Schedule Referral to Dermatology - Mohs Surgery Outpatient Referral Routine Neoplasm of uncertain behavior of skin Expected: 08/13/2023 (Approximate), Expires: 02/12/2024 documented as of this encounter Visit Diagnoses Diagnosis Neoplasm of uncertain behavior of skin- Primary documented in this encounter
--- OUTSIDE RECORDS SUMMARY | 2025-07-01 09:44 | XMS_ITS | Clinical Summary ---
Author Organization [facility] Address [address] [place] [address] Phone Care Team Providers Care Steam Turbine Operator Name Role Phone Unavailable Primary Care Provider Unavailabl e Allergies No known active allergies Medications atenolol (Tenormin) 50 mg tablet Take 1.5 tablets (75 mg) by mouth once daily. 05/24/2023 Active cholecalciferol (Vitamin D-3) 125 MCG (5000 UT) capsule Take 1 capsule (125 mcg) by mouth once daily. 05/23/2023 Active meloxicam (Mobic) 15 mg tablet Take 1 tablet (15 mg) by mouth once daily. 03/01/2023 Active omeprazole (PriLOSEC) [address] capsule Take 1 capsule (40 mg) by mouth once daily. 05/23/2023 Active Social History Tobacco Use Types Packs/Day Years Used Date Smoking Tobacco: Never Assessed Comments Unknown Sex and Gender Information Value Date Recorded Sex Assigned at Not on file Legal Sex Female 6:20 AM EST Gender Identity Not on file Sexual Orientation Not on file Last Filed Vital Signs Vital Sign Reading Time Taken Comments Blood Pressure 172/94 08/24/2023 8:39 AM EDT Pulse 55 08/24/2023 8:39 AM EDT Temperature - - Respiratory Rate - - Oxygen Saturation - - Inhaled Oxygen Concentration - - Weight - - Height - - Body Mass Index - - Plan of Treatment Health Maintenance Due Date Last Done Comments CT Colonography 1959 FIT-DNA (Cologuard) 1960 FIT 1960 Sigmoidoscopy 1960 Skin Cancer Screening 1960 Yearly Adult Physical 1960 MMR Vaccines (1 of 1 - Standard series) 02/23/1960 Hepatitis C Screening 1977 DTaP/Tdap/Td Vaccines (1 - Tdap) 1981 Pneumococcal Vaccine (1 of 1 - PCV) 2009 Zoster Vaccines (1 of 2) 2009 Bone Density Scan 02/23/2024 COVID-19 Vaccine (1 - 2023- season) 2024 Mammogram 09/14/2024 09/14/2023, 11/0 06/2023, 04/21/2022, Additional history exists Influenza Vaccine (#1) 2025 Lipid Panel 09/16/2028 09/16/2023 Colonoscopy 04/13/2031 04/13/2021 Colorectal Cancer Screening 04/13/2031 RSV High Risk: (Elderly (60+) or Population) (1 - 1-dose 75+ series) 2034 HIB Vaccines Aged Out No longer eligi ble based on patient's age to complete this topic HPV Vaccines Aged Out No longer eligi ble based on patient's age to complete this topic Hepatitis A Vaccines Aged Out No long er eligible based on patient's age to complete this topic Hepatitis B Vaccines Aged Out No long er eligible based on patient's age to complete this topic IPV Vaccines Aged Out No longer eligi ble based on patient's age to complete this topic Meningococcal Vaccine Aged Out No jonathan tomasz eligible based on patient's age to complete this topic Rotavirus Vaccines Aged Out No longer eligible based on patient's age to complete this topic Insurance [employer]ET[employer] [facility] [employer]
--- OUTSIDE RECORDS SUMMARY | 2025-07-01 09:44 | XMS_ITS | Encounter Summary ---
Author Organization [facility] Address [address] [place] [address] Phone Care Team Providers Care Peoples[employer] Financials Consultant Name Role Phone Unavailable Primary Care Provider Unavailabl e Encounter Details Date Type Department Care Team (Late st Contact Info) Description 08/25/2023 Scanned Document [facility] [address] [phone] Anthony Davis MD PhD [address], [address] [id number] Social History Tobacco Use Types Packs/Day Years Used Date Smoking Tobacco: Never Assessed Comments Unknown Sex and Gender Information Value Date Recorded Sex Assigned at Not on file Legal Sex Female 6:20 AM EST Gender Identity Not on file Sexual Orientation Not on file COVID-19 Exposure Response Date Recorded In the last 10 days, have yo u been in contact with someone who was confirmed or suspected to have Coronavirus/COVID-19? No / Unsure 08/24/2023 8:19 AM EDT documented as of this encounter Plan of Treatment Not on file documented as of this encounter Visit Diagnoses Not on filedocumented in this encounter
--- OUTSIDE RECORDS SUMMARY | 2025-07-01 09:44 | XMS_ITS | Encounter Summary ---
Author Organization [facility] Address [address] [place] [address] Care Team Providers Care Neighborhood Worker Name Role Phone Hankjean Ace Chapman DO Primary Care Provider [phone] Ace Macias DO Unavailable [phone] Cee Currie MD Unavailable [phone] Encounter Details Date Type Department Care Team (Late Contact Info) Description 07/05/2023 Abstract [facility] [address] [place] [address] Cee Currie MD [address] [facility] [address] [place] [address] Social History Tobacco Use Types Packs/Day Years Used Date Smoking Tobacco: Former Cigarettes Q uit: 03/07/1999 Smokeless Tobacco: Never Tobacco Cessation:Counseling Given: Not Answered Alcohol Use Standard Drinks/Week Comments Not Currently 0 (1 standard drink = 0.6 oz pure alcohol) caffeine 1-2 cups per day; coffee Comments Unknown Sex and Gender Information Value Date Recorded Sex Assigned at Not on file Legal Sex Female 6:39 PM EDT Gender Identity Not on file Sexual Orientation Not on file documented as of this encounter Plan of Treatment Upcoming Encounters Date Type Department Care Team (Late st Contact Info) Description 09/18/2025 1:50 PM EST Office Visit [facility] [address] [place] [address] Cee Currie MD [address] [facility] [address] [place] [address] documented as of this encounter Visit Diagnoses Not on filedocumented in this encounter Care Teams Neighborhood Worker Relationship Specialty Start Date End Date Ace Macias DO [address] [place] [address] PCP - General Family Medicine 03/15/23 Ace Macias DO [address] [place] [address] PCP - [employer] 03/07/24 Cee Currie MD [address] [place] [address] Referring Physician Dermatology 01/14/25 documented as of this encounter
--- NOTE | 2025-07-01 09:52 | ECG_ITS ---
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
== END 2025-07-01 09:42 | disposition home or self-care (01) ==
LOC: CARD 09:41
PROVIDERS: Family Provider Physician Assistant Medical; PCP Family Medicine; Visit Provider Family Medicine
DX: R00.0 Tachycardia, unspecified (principal)
CPT/HCPCS: 93005